=== PATIENT | female | born 1985 ===

== ENCOUNTER 2022-12-15 09:55 | Outpatient (REF) | payer BC, SELFPAY ==
[2022-12-15 14:23] LABS: HCT 42.2 % (36.0-46.0); MCH 31.3 pg (27.0-33.0); MCHC 33.2 % (32.0-36.0); MCV 94 fL (80-95); Platelet Count 264 10^3/uL (130-400); RBC 4.48 10^6/uL (3.93-5.22); RDW 12.2 % (11.7-14.6); RDW-SD 42.8 fL; WBC 4.88 10^3/uL (4.4-10.8)
[2022-12-15 15:12] LABS: ALT 37 U/L (14-59); AST 39 U/L (15-37); Alkaline Phosphatase 59 U/L (46-116); Anion Gap 13.7 mmol/L (3-11); BUN 8 mg/dL (7-18); Bilirubin, Total 0.9 mg/dL (0.2-1.0); CO2 22.3 mmol/L (21.0-32.0); CREATININE 0.8 mg/dL (0.55-1.02); Calculated LDL 131 mg/dL (<100); Chloride 104 mmol/L (98-107); Cholesterol 235 mg/dL (<200); Estimated GFR 97.87 (mL/min/1.73m2); Glucose 94 mg/dL (74-106); HDL Cholesterol 69 mg/dL (40-60); Potassium 3.8 mmol/L (3.5-5.1); Sodium 140 mmol/L (136-145); TSH 2.49 uIU/mL (0.36-3.74); Total Protein 8.2 g/dL (6.4-8.2); Triglyceride 176 mg/dL (<150)
[2022-12-15 16:35] LABS: Hemoglobin A1C < 4.5 % (<5.7)
== END 2022-12-15 09:56 | disposition home or self-care (01) ==
LOC: NCHCN 09:55
PROVIDERS: PCP Family Medicine; Visit Provider Nurse Practitioner Family
DX: F41.9 Anxiety disorder, unspecified (principal); R00.2 Palpitations; Z13.220 Encounter for screening for lipoid disorders; Z13.1 Encounter for screening for diabetes mellitus
CPT/HCPCS: 80053; 80061; 85027; 83036; 84443